=== PATIENT | male | born 1975 | race Caucasian/White ===

== ENCOUNTER 2019-10-04 23:59 | Emergency (ER) | payer OTHER, SELFPAY ==
--- NOTE | ~2019-10-04 | XR_ITS ---
XR chest 2V DATE: 10/05/2019 00:40 INDICATION: Shortness of breath, orthopnea TECHNIQUE: PA and lateral views COMPARISON: None FINDINGS: There is mild pulmonary vascular congestion/redistribution and pulmonary interstitial promi nence including bilateral Kiki B-lines. There is mild prominence of the fissures consistent with armstrong bpleural edema. No pulmonary infiltrate or consolidation, pleural effusion or pneumothorax. IMPRESSION: Mild congestive changes with pulmonary interstitial and subpleural edema Reviewed, dictated and finalized at location A.
[2019-10-05 00:04] VITALS: BP 149/100; PULSE 91; RESP 18; TEMP 36; O2SAT 99
--- NOTE | 2019-10-05 00:22 | ECG_ITS ---
Measurements Intervals [place] Rate: 95 P: 38 IN: 191 QRS: -30 QRSD: 109 T: 147 QT: 375 QTc: 473 Interpretive Statements SINUS RHYTHM DELAYED PRECORDIAL R/S TRANSITION T WAVE ABNORMALITY IN HIGH LATERAL LEADS- CONSIDER ISCHEMIA ABNORMAL ECG Electronically Signed On 10-05-2019 7:12:37 CDT by Loc Flores D.O.
--- NOTE | 2019-10-05 00:22 | ED.GENADULT ---
HPI - General Adult General Chief complaint: Unspecified Stated complaint: wants a second opinion Time Seen by Provider: 10/05/19 00:22 Source: patient and family Mode of arrival: ambulatory Limitations: no limitations History of Present Illness HPI narrative: Patient is a 43-year-old male with a history of diabetes, recently diagnosed congestive heart failure, recent admission to [facility] who presents for evaluation of swelling. Patient reports that he feels very swollen in his upper extremities. He denies any chest pain or shortness of breath. He states that he was having difficulty sleeping due to anxiety and so wanted a second opinion as he was discharged from [facility] today and felt like he may have been discharged earlier than he should have been. He is denying fever, chills, cough. No lightheadedness or dizziness. Patient was initially admitted to [facility] because he had been noncompliant with his diabetes medications. Pt states he was not discharged with any lasix prescriptions. He does have follow up with [facility] out of [facility], Dr. Rogers in two weeks. Related Data Home Medications Medication Instructions Recorded Confirmed clindamycin HCl 300 mg PO Q6H 10/05/19 10/05/19 hydrocodone-acetaminophen [[place]] 1 tablet PO Q6H PRN 10/05/19 10/05/19 metoprolol tartrate 25 mg PO DAILY 10/05/19 10/05/19 naproxen 500 mg PO BID 10/05/19 10/05/19 nifedipine 30 mg PO DAILY 10/05/19 10/05/19 Allergies Allergy/AdvReac Type Severity Reaction Status Date / Time No Known Allergies Allergy Verified 10/05/19 00:06 Review of Systems Review of Systems: Narrative: CONSTITUTIONAL: Denies fever CARDIOVASCULAR: Denies chest pain RESPIRATORY: Denies cough or dyspnea. GASTROINTESTINAL: Denies abdominal pain SKIN: Denies rash MUSCULOSKELETAL: Denies back pain, reports swelling in his hands NEUROLOGIC: Denies headache PMFSH Past Medical History Medical History (Updated 10/05/19 @ 02:08 by Gayle Esparza MD) Heart failure Type 2 diabetes mellitus Surgical History Surgical History (Updated 10/05/19 @ 00:40 by Gayle Esparza MD) H/O knee surgery Social History Social History (Updated 10/05/19 @ 00:41 by Gayle Esparza MD) Smoking status: Former smoker Tobacco type: cigarettes Alcohol intake: never Substance use: former Substance use type: heroin Living arrangements: with family Gender identity (if verbalized by the patient): Male Exam Narrative: Exam Narrative: GENERAL: Awake, alert, conversant HEAD: Normocephalic, atraumatic. EYES: PERRLA and EOMI. ENT: Nares clear, no rhinorrhea or epistaxis. Mucous membranes moist. NECK: Supple. CHEST: No respiratory distress, breathing even and non labored HEART: Regular rate, sinus rhythm ABDOMEN:Non distended, non tender EXTREMITIES: Normal range of motion. Mild bilateral lower extremity pitting edema 1+ mid shins. SKIN: Warm, dry, no rash. NEURO:No focal deficits. Alert and oriented x3 Course Vital Signs Vital signs: Vital Signs Temperature 36.0 C L 10/05/19 00:04 Pulse Rate 91 10/05/19 00:04 Respiratory Rate 18 10/05/19 00:04 Blood Pressure 149/100 H 10/05/19 00:04 Pulse Oximetry 99 10/05/19 00:04 Temperature 36.0 C L 10/05/19 00:04 Pulse Rate 89 10/05/19 02:58 Respiratory Rate 20 10/05/19 02:58 Blood Pressure 125/78 10/05/19 02:58 Pulse Oximetry 98 10/05/19 02:58 Medical Decision Making MDM Narrative Medical decision making narrative: Patient presenting for evaluation of swollen legs, hands following recent discharge from [facility] for CHF exacerbation. I was able to review records to confirm this. At the time of initial assessment, ABCs are intact and vital signs are stable. Patient has no increased work of breathing or shortness of breath. He has some very mild lower extremity pitting edema. No chest pain, hypoxemia to suggest a PE. No calf pain, erythema
[2019-10-05 00:39] LABS: Basophils Absolute Auto 0.1 K/mm3 (0.0-0.1); Basophils Percent Auto 0.6 % (0.2-1.2); Eosinophils Absolute Auto 0.3 K/mm3 (0-0.3); Eosinophils Percent Auto 2.2 % (0-4.4); Hematocrit 40.6 % (42.0-52.0); Hemoglobin 12.8 g/dL (14.0-18.0); Immature Granulocyte Absolute 0.08 K/mm3 (0.00-0.031); Immature Granulocyte Percent A 0.7 % (0-0.5); Immature Platelet Fraction Pct 2.7 % (0.9-11.2); Mean Corpuscular HGB Conc 31.5 g/dl (32-36); Mean Corpuscular Hemoglobin 27.2 pg (26-34); Mean Corpuscular Volume 86.2 fl (80-100); Mean Platelet Volume 10.2 fl (7.4-10.4); Monocytes Absolute Auto 1.3 K/mm3 (0.1-0.6); Monocytes Percent Auto 11.1 % (2.6-8.5); Neutrophils Percent Auto 62.4 % (45.5-73.1); Platelet Count Result 464 k/mm3 (150-375); Red Blood Count 4.71 M/mm3 (4.6-6.20); Red Cell Distribution Width 14.6 % (11.5-14.5); White Blood Count 11.3 K/mm3 (4.5-10.0)
[2019-10-05 00:50] LABS: Large Platelets Present
[2019-10-05 01:14] VITALS: BP 138/99; PULSE 95; RESP 20; O2SAT 95
[2019-10-05 01:26] LABS: Partial Thromboplastin Time 27.8 SECONDS (22.3-36.8); Prothrombin Time 12.9 Seconds (11.1-14.7)
[2019-10-05 01:35] LABS: Anion Gap 10.2 mmol/L (7-16); Blood Urea Nitrogen 19 mg/dL (9-20); Calcium 8.3 mg/dL (8.4-10.2); Carbon Dioxide 30 mmol/L (22-30); Chloride 97 mmol/L (98-107); Estimated Glomerular Filt Rate > 60; Glucose 289 mg/dL (75-110); Potassium 4.2 mmol/L (3.4-5.0); Sodium 133 mmol/L (137-145)
[2019-10-05 01:46] LABS: NT Pro B Type Natriuretic Pept 2470 PG/ML (5-100); Troponin I 0.015 ng/mL (0.000-0.034)
[2019-10-05 02:11] VITALS: BP 133/82; PULSE 91; RESP 20; O2SAT 97
--- NOTE | 2019-10-05 02:11 | PC.NURSE ---
PT AMBULATED IN ANDERSON WITH STEADY GAIT. O2 SAT 97-99%. DENIES SOB.
[2019-10-05] MEDS: FUROSEMIDE INJ 40 MG/4 ML VIAL 20 MG IV PUSH (02:17)
[2019-10-05 02:58] VITALS: BP 125/78; PULSE 89; RESP 20; O2SAT 98
[2019-10-05 03:21] VITALS: BP 125/78; PULSE 88; RESP 20; O2SAT 97
== END 2019-10-05 03:27 | disposition home or self-care (01) ==
PROVIDERS: Emergency Provider Emergency Medicine
DX: R79.89 Other specified abnormal findings of blood chemistry (principal); E11.9 Type 2 diabetes mellitus without complications; I50.9 Heart failure, unspecified; Z87.891 Personal history of nicotine dependence; R94.31 Abnormal electrocardiogram [ECG] [EKG]
CPT/HCPCS: 36415; 71046; 80048; 83880; 84484; 85025; 85055; 85610; 85730; 93005; 96374; 99284; J1940